=== PATIENT | female | born 1970 | race Caucasian/White ===

== ENCOUNTER 2020-10-13 08:11 | Inpatient (IN) | payer BC ==
[2020-10-13] MEDS ORDERED: Tranexamic Acid 1,000 MG/10 ML VIAL ONE (08:52)
[2020-10-13] MEDS ORDERED: diphenhydrAMINE 50 MG/ML VIAL ONE (08:52)
[2020-10-13] MEDS ORDERED: Dexamethasone 10 MG/ML VIAL ONE (08:52)
[2020-10-13] MEDS ORDERED: Famotidine/PF 20 mg/2ml Vial ONE (08:53)
[2020-10-13 08:57] LABS: #Monocytes 0.3 10x3/uL (0.0-1.1); #Neutrophils 4.2 10x3/uL (1.5-8.4); %Basophils 0.7 % (0.0-2.0); %Eosinophils 0.5 % (0.0-6.0); %Lymphocytes 23.2 % (18.0-47.0); %Monocytes 4.2 % (0.0-10.0); %Neutrophils 70.9 % (40.0-75.0); Hemoglobin 13.1 g/dL (12.0-15.5); Mean Corpuscular HGB CONC 32.3 g/dL (32.0-36.0); Mean Corpuscular Hemoglobin 28.9 pg (27.0-33.0); Mean Corpuscular Volume 89.6 fl (81.6-98.3); Mean Platelet Volume 9.7 fl (7.4-10.4); Platelet Count 219 10x3/uL (150-450); RBC Distribution Width 13.2 % (11.5-14.5); Red Blood Cell (RBC) Count 4.53 10x6/uL (3.90-5.03); White Blood Cell (WBC) Count 5.9 10x3/uL (3.5-10.5)
[2020-10-13 09:18] LABS: ALT (SGPT) 40 U/L (8-55); AST (SGOT) 24 U/L (5-34); Albumin 4.1 g/dL (3.5-5.0); Alkaline Phosphatase 71 U/L (40-110); Anion Gap 14 mmol/L (10-20); BUN (Urea Nitrogen) 18 mg/dL (9.8-20.1); Bilirubin, Total 0.5 mg/dL (0.2-1.2); CK (CPK) 51 U/L (29-168); Calc. Creatinine Clearance 0 mL/min (70-130); Calcium 9.4 mg/dL (7.8-10.44); Carbon Dioxide 25 mmol/L (22-29); Chloride 108 mmol/L (98-107); Globulin 3.3 g/dL (2.4-3.5); Glucose 152 mg/dL (70-105); Potassium 4.3 mmol/L (3.5-5.1); Protein, Total 7.4 g/dL (6.0-8.3); Sodium 143 mmol/L (136-145)
[2020-10-13] MEDS ORDERED: Ondansetron PF 4 MG/2 ML Vial IVP PRN (10:41)
[2020-10-13] MEDS ORDERED: diphenhydrAMINE 25 MG CAP PO PRN (12:30)
[2020-10-13 12:50] VITALS: BMI 37.5
[2020-10-13] MEDS ORDERED: Metoprolol Tartrate 25 MG TAB PO SCH (15:00)
[2020-10-13] MEDS: methylPREDNISolone Sod Succ 40 MG VIAL IVP SCH ×2 (18:31→23:36)
[2020-10-13] MEDS: Acetaminophen 325 MG TAB PO PRN (18:36)
[2020-10-13] MEDS: Metoprolol Tartrate 25 MG TAB PO SCH (20:42)
[2020-10-13] MEDS: Famotidine/PF 20 mg/2ml Vial SLOW IVP SCH (20:43)
[2020-10-14 05:19] LABS: #Monocytes 0.1 10x3/uL (0.0-1.1); #Neutrophils 12.4 10x3/uL (1.5-8.4); %Basophils 0.1 % (0.0-2.0); %Monocytes 0.5 % (0.0-10.0); %Neutrophils 91.5 % (40.0-75.0); Hemoglobin 12.6 g/dL (12.0-15.5); Mean Corpuscular HGB CONC 32.6 g/dL (32.0-36.0); Mean Corpuscular Hemoglobin 28.9 pg (27.0-33.0); Mean Corpuscular Volume 88.8 fl (81.6-98.3); Mean Platelet Volume 10.2 fl (7.4-10.4); Platelet Count 240 10x3/uL (150-450); RBC Distribution Width 13.1 % (11.5-14.5); Red Blood Cell (RBC) Count 4.36 10x6/uL (3.90-5.03); White Blood Cell (WBC) Count 13.6 10x3/uL (3.5-10.5)
[2020-10-14 05:26] LABS: Anion Gap 15 mmol/L (10-20); BUN (Urea Nitrogen) 17 mg/dL (9.8-20.1); Calc. Creatinine Clearance 130 mL/min (70-130); Calcium 9.9 mg/dL (7.8-10.44); Carbon Dioxide 20 mmol/L (22-29); Chloride 109 mmol/L (98-107); Glucose 294 mg/dL (70-105); Potassium 4.2 mmol/L (3.5-5.1); Sodium 140 mmol/L (136-145)
[2020-10-14] MEDS: methylPREDNISolone Sod Succ 40 MG VIAL IVP SCH ×3 (06:03→17:43)
[2020-10-14] MEDS: Famotidine/PF 20 mg/2ml Vial SLOW IVP SCH ×2 (08:09→21:15)
[2020-10-14] MEDS: Metoprolol Tartrate 25 MG TAB PO SCH ×2 (08:11→21:22)
[2020-10-14] MEDS ORDERED: Enoxaparin Sodium 40 MG/0.4 ML SYRINGE SC SCH (14:00)
[2020-10-14] MEDS ORDERED: Metoprolol Tartrate 25 MG TAB PO SCH (17:15)
[2020-10-14] MEDS: Acetaminophen 325 MG TAB PO PRN (17:42)
[2020-10-14] MEDS ORDERED: hydrALAZINE 20 MG/ML VIAL SLOW IVP PRN (18:00)
[2020-10-15] MEDS: methylPREDNISolone Sod Succ 40 MG VIAL IVP SCH ×3 (05:33→13:21)
[2020-10-15] MEDS ORDERED: Enoxaparin Sodium 40 MG/0.4 ML SYRINGE SC SCH (09:00)
[2020-10-15] MEDS: Famotidine/PF 20 mg/2ml Vial SLOW IVP SCH (10:22)
[2020-10-15] MEDS: Metoprolol Tartrate 25 MG TAB PO SCH (10:22)
[2020-10-15] MEDS ORDERED: hydrALAZINE 25 MG TAB PO SCH ×2 (10:45→15:00)
[2020-10-15 12:55] VITALS: TEMP 98.1
[2020-10-15 12:56] VITALS: BP 158/67
== END 2020-10-15 14:00 | disposition home or self-care (01) | DRG 916 ==
LOC: CSHERS 08:11 → INTOOBSV 11:59 → CSHTELE 11:59 → UNDOADMOB 11:59 → OBSVTOIN 11:59 → CSHTELE 10-14 12:23
PROVIDERS: ADMIT Family Medicine; ATTEND Internal Medicine
DX: T78.3XXA Angioneurotic edema, initial encounter (principal); T46.4X5A Adverse effect of angiotensin-converting-enzyme inhibitors, initial encounter; I10 Essential (primary) hypertension; Z86.16 Personal history of COVID-19; Z90.710 Acquired absence of both cervix and uterus; E66.9 Obesity, unspecified; Z68.37 Body mass index [BMI] 37.0-37.9, adult; G47.33 Obstructive sleep apnea (adult) (pediatric); Z79.82 Long term (current) use of aspirin; Z79.899 Other long term (current) drug therapy
CPT/HCPCS: 80048; 80053; 82550; 85025; 94760; 96365; 96375; 96376; G0378; J0360; J1100; J1200; J2920; S0028

== ENCOUNTER 2022-10-30 14:34 | Outpatient (CLI) | payer OTHER | END 2022-10-30 14:35 | disposition home or self-care (01) | LOC: CSHMAMMO 14:34 | PROVIDERS: ATTEND Student in an Organized Health Care Education/Training Program | DX: Z12.31 Encounter for screening mammogram for malignant neoplasm of breast (principal) | CPT/HCPCS: 77063; 77067 ==